=== PATIENT | female | born 2005 | race Hispanic/Latino ===

== ENCOUNTER 2024-07-24 16:05 | Emergency (ER) | payer BC, SELFPAY ==
[2024-07-24 17:09] LABS: SARS-CoV-2 Antigen CONTROL BLUE LINE VIS/BG OK; SARS-CoV-2 Antigen Rapid Res Negative (Negative)
--- NOTE | 2024-07-24 20:02 | RAD REPORT ---
EXAM: CT brain without contrast HISTORY: Headache COMPARISON: None TECHNIQUE: Multiple contiguous axial images were obtained and a CT of the brain without contrast.. Sagittal and coronal reconstruction performed. Automated exposure control, adjustment of the mA and/or kV according to patient size, and/or iterative reconstruction. Unless otherwise specified, incidental f indings do not require dedicated imaging follow-up FINDINGS: An intracranial bleed is not seen Ventricles are normal caliber No extra-axial fluid collection noted No significant hypodensity within the brain No fluid within the visualized sinuses or mastoids noted. IMPRESSION: No acute intracranial abnormality noted. If the patient continues to have symptoms to suggest an acute intracranial abnormality then MRI of th e brain would be recommended.
[2024-07-24] MEDS ORDERED: KETOROLAC 30 MG/ML INJ ONE (20:06)
--- NOTE | 2024-07-24 20:26 | EDPHYS ---
Physician Documentation [facility] Name: Renetta Beal Age: 19 yrs Sex: Female : 2005 Arrival Date: 07/24/2024 Time: 16:05 Bed 7 Private MD: ED Physician Evens Haider HPI: 07/24 21:32 This 19 yrs old Female presents to ER via Ambulatory with complaints of kb Headache. 21:32 Pt is a 19 year old female who presents for headache that started yesterday. States "my kb brain is hurting." Reports headache started while she was in an argument and she felt a pop in her head. Pain is to bilateral temples and forehead. Denies nausea, vomiting, photophobia. Historical: - Allergies: 16:40 Prednisone (HEADACHE); cm10 - PMHx: 16:40 None; cm10 - PSHx: 16:40 BREAST IMPLANTS; cm10 - Immunization history:: Adult Immunizations up to date. - Infectious Disease History:: Denies. - Social history:: Smoking status: Patient denies any tobacco usage or history of. ROS: 21:32 Constitutional: As per HPI kb Exam: 21:32 Constitutional: This is a well developed, well nourished patient who is awake, alert, kb and in no acute distress. Head/Face: Normocephalic, atraumatic. Eyes: Pupils equal round and reactive to light, extra-ocular motions intact. Lids and lashes normal. Conjunctiva and sclera are non-icteric and not injected. Cornea within normal limits. Periorbital areas with no swelling, redness, or edema. ENT: Moist Mucous membranes Cardiovascular: Regular rate Respiratory: Respirations even and unlabored. No increased work of breathing. Talking in full sentences Skin: Warm, dry with normal turgor. Normal color. MS/ Extremity: Pulses equal, no cyanosis. Neurovascular intact. Full, normal range of motion. Neuro: Awake and alert, GCS 15, oriented to person, place, time, and situation. Vital Signs: 16:38 BP 123 / 97; Pulse 74; Resp 16; Temp 97.8(TE); Pulse Ox 99% on R/A; Weight 60.33 kg; cm10 Height 5 ft. 0 in. ; Pain 8/10; 19:13 BP 106 / 64; Pulse 69; Resp 16; Temp 98.9(O); Pulse Ox 98% ; Pain 7/10; bm8 20:28 BP 110 / 67; Pulse 71; Resp 17; Temp 98.9; Pulse Ox 100% ; Pain 0/10; bm8 16:38 Body Mass Index 25.97 (60.33 kg, 152.4 cm) cm10 16:38 Pain Scale: Adult cm10 19:13 Pain Scale: Adult bm8 20:28 Pain Scale: Adult bm8 Margarita Coma Score: 19:13 Eye Response: spontaneous(4). Motor Response: obeys commands(6). Verbal Response: bm8 oriented(5). Total: 15. 20:28 Eye Response: spontaneous(4). Motor Response: obeys commands(6). Verbal Response: bm8 oriented(5). Total: 15. 21:32 Eye Response: spontaneous(4). Motor Response: obeys commands(6). Verbal Response: kb oriented(5). Total: 15. MDM: 18:00 Medical Screening Exam initiated kb 21:32 Differential diagnosis: migraine, tension headache, aneurysm. Data reviewed: vital kb signs, nurses notes. Historians other than the Patient: Family Member: mother. Counseling: I had a detailed discussion with the patient and/or guardian regarding the historical points, exam findings, and any diagnostic results supporting the discharge/admit diagnosis, radiology results, the need for outpatient follow up, a family practitioner, to return to the emergency department if symptoms worsen or persist or if there are any questions or concerns that arise at home. 07/24 16:39 Order name: SARS RAPID; Complete Time: 18:25 cm10 07/24 16:39 Order name: Flu; Complete Time: 18:25 cm10 07/24 19:21 Order name: CT Head Brain wo Cont; Complete Time: 20:03 kb Administered Medications: 20:20 Drug: Ketorolac IM 30 mg IM once Route: IM; Site: left deltoid; bm8 20:29 Follow up: Response: No adverse reaction bm8 Disposition Summary: 07/24/24 20:25 Discharge Ordered Notes: Location: Home kb Condition: Stable kb Diagnosis - Headache kb Followup: kb - With: Emergency Department - When: As needed - Reason: Worsening of condition Followup: kb - With: Private Physician - When: 2 - 3 days - Reason: Recheck today's complaints, Continuance of care, Re-evaluation by your physician Discharge Instructions: - Discharge Summary Sheet kb - Tension Headache, Adult, [id number] kb Forms: - Medication Reconciliation Form kb - Antibiotic Education kb - Prescription Opioid Use kb - Patient Portal Instructions kb - Leadership Thank You Letter kb Signatures: Dispatcher [employer] EDMS Phyllis Arshad, ISAC GUERRIER-Kathy Robertson RN RN cm10 Samir Thurman RN RN bm8 Corrections: (The following items were deleted from the chart) 19:21 19:21 Head Brain Wo [id number] ordered. EDKY EDMS
--- NOTE | 2024-07-24 20:26 | ER ---
Nurse's Notes [facility] Name: Renetta Beal Age: 19 yrs Sex: Female : 2005 Arrival Date: 07/24/2024 Time: 16:05 Bed 7 Private MD: Diagnosis: Headache Presentation: 07/24 16:38 Chief complaint: Patient states: "ME BRAIN HAS BEEN HURTING FOR THE LAST 2 DAYS." PT cm10 DENIES ANY OTHER SYMPTOMS. Coronavirus screen: Client denies travel out of the [place] in the last 14 days. Ebola Screen: Patient denies travel to an Ebola-affected area in the 21 days before illness onset. No symptoms or risks identified at this time. 16:38 Method Of Arrival: Ambulatory cm10 16:39 Initial Sepsis Screen: Does the patient meet any 2 criteria? No. Patient's initial cm10 sepsis screen is negative. Does the patient have a suspected source of infection? No. Patient's initial sepsis screen is negative. Risk Assessment: Do you want to hurt yourself or someone else? Patient reports no desire to harm self or others. Onset of symptoms was July 24, 2024. 16:39 Acuity: MAHAMED 3 cm10 Triage Assessment: 16:41 General: Appears in no apparent distress. uncomfortable, Behavior is calm, cooperative. cm10 Neuro: No deficits noted. Level of Consciousness is awake, alert, obeys commands, Oriented to person, place, time, situation, Appropriate for age Reports headache. Historical: - Allergies: 16:40 Prednisone (HEADACHE); cm10 - PMHx: 16:40 None; cm10 - PSHx: 16:40 BREAST IMPLANTS; cm10 - Immunization history:: Adult Immunizations up to date. - Infectious Disease History:: Denies. - Social history:: Smoking status: Patient denies any tobacco usage or history of. Screenin:48 [facility] ED Fall Risk Assessment (Adult) History of falling in the last 3 months, jl7 including since admission No falls in past 3 months (0 pts) Confusion or Disorientation No (0 pts) Intoxicated or Sedated No (0 pts) Impaired Gait No (0 pts) Mobility Assist Device Used No (0 pt) Altered Elimination No (0 pt) Score/Fall Risk Level 0 - 2 = Low Risk Oriented to surroundings, Maintained a safe environment. Abuse screen: Denies threats or abuse. Denies injuries from another. Nutritional screening: No deficits noted. Tuberculosis screening: No symptoms or risk factors identified. 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 jl7 19:13 General: Appears in no apparent distress. comfortable, Behavior is calm, cooperative, bm8 appropriate for age. Pain: Complains of pain in top of head and forehead Pain currently is 7 out of 10 on a pain scale. Quality of pain is described as aching. Neuro: No deficits noted. Level of Consciousness is awake, alert, obeys commands, Oriented to person, place, time, situation, Appropriate for age Reports headache frontal area. Cardiovascular: Denies chest pain, Capillary refill < 3 seconds in bilateral fingers Patient's skin is warm and dry. Respiratory: Airway is patent Trachea midline Respiratory effort is even, unlabored, Respiratory pattern is regular, symmetrical. GI: No signs and/or symptoms were reported involving the gastrointestinal system. : No signs and/or symptoms were reported regarding the genitourinary system. EENT: No signs and/or symptoms were reported regarding the EENT system. Derm: No signs and/or symptoms reported regarding the dermatologic system. Musculoskeletal: No signs and/or symptoms reported regarding the musculoskeletal system. 19:16 Reassessment: Spoke to provider about pt requesting CT and her pain level, Provider bm8 stated that she would order a CT and she was holding off on pain medication until results are back on CT. 20:28 Reassessment: Patient appears in no apparent distress at this time. Patient and/or bm8 family updated on plan of care and expected duration. Pain level reassessed. Patient is alert, oriented x 3, equal unlabored respirations, skin warm/dry/pink. Patient denies pain at this time. Patient states feeling better. Patient states symptoms have improved. Vital Signs: 16:38 BP 123 / 97; Pulse 74; Resp 16; Temp 97.8(TE); Pulse Ox 99% on R/A; Weight 60.33 kg; cm10 Height 5 ft. 0 in. ; Pain 8/10; 19:13 BP 106 / 64; Pulse 69; Resp 16; Temp 98.9(O); Pulse Ox 98% ; Pain 7/10; bm8 20:28 BP 110 / 67; Pulse 71; Resp 17; Temp 98.9; Pulse Ox 100% ; Pain 0/10; bm8 16:38 Body Mass Index 25.97 (60.33 kg, 152.4 cm) cm10 16:38 Pain Scale: Adult cm10 19:13 Pain Scale: Adult bm8 20:28 Pain Scale: Adult bm8 Margarita Coma Score: 19:13 Eye Response: spontaneous(4). Motor Response: obeys commands(6). Verbal Response: bm8 oriented(5). Total: 15. 20:28 Eye Response: spontaneous(4). Motor Response: obeys commands(6). Verbal Response: bm8 oriented(5). Total: 15. 21:32 Eye Response: spontaneous(4). Motor Response: obeys commands(6). Verbal Response: kb oriented(5). Total: 15. ED Course: 16:08 Patient arrived in ED. im 16:40 Triage completed. cm10 16:41 Arm band placed on right wrist. Patient placed in waiting room. cm10 16:43 COVID swab sent to lab. Flu and/or RSV swab sent to lab. cm10 16:43 Flu Sent. cm10 16:43 SARS RAPID Sent. cm10 17:56 Patient placed in an exam room, on a stretcher. ll1 17:57 Rolf Leslie, RN is Primary Nurse. bp 18:00 Phyllis Arshad FNP-C is PHCP. kb 18:00 Evens Haider MD is Attending Physician. kb 18:48 Patient has correct armband on for positive identification. Provided Education on: use jl7 of call olivarez. 19:13 Client placed on continuous cardiac and pulse oximetry monitoring. NIBP monitoring bm8 applied. Pulse ox on. NIBP on. Door closed. Noise minimized. Pillow given. Verbal reassurance given. Head of bed elevated. 19:13 No provider procedures requiring assistance completed. Patient maintains SpO2 bm8 saturation greater than 95% on room air. 19:42 CT Head Brain wo Cont In Process Unspecified. EDMS 20:21 Primary Nurse role handed off by Rolf Leslie, RN bm8 20:21 Samir Thurman, RN is Primary Nurse. bm8 20:28 IV discontinued. bm8 Administered Medications: 20:20 Drug: Ketorolac IM 30 mg IM once Route: IM; Site: left deltoid; bm8 20:29 Follow up: Response: No adverse reaction bm8 Medication: 18:48 VIS not applicable for this client. jl7 Outcome: 20:25 Discharge ordered by . myrtle 20:28 Discharged to home ambulatory, bm8 20:28 Condition: stable 20:28 Discharge instructions given to patient, family, Instructed on discharge instructions, follow up and referral plans. no drinking with medication, no driving heavy equipment, medication usage, safety practices, Demonstrated understanding of instructions, follow-up care, medications, 20:30 Patient left the ED. bm8 Signatures: Dispatcher [employer] EDMS Phyllis Arshad, RESTAURANT LEAD-C RESTAURANT LEAD-Harlan Mitchell, RN RN jl7 Rolf Leslie, RN RN Mi Daniels RN RN ll1 Tosin Newberry Clarissa RN RN cm10 Samir Thurman, RN RN bm8 Corrections: (The following items were deleted from the chart) 16:39 16:38 Chief complaint: ll1 cm10 16:41 16:38 Chief complaint: Patient states: "ME BRAIN HAS BEEN HURTING FOR THE LAST 2 DAYS." 10 cm10 19:18 19:13 BP 106 / 64; Pulse 69bpm; Resp 16bpm; Pulse Ox 98%; Temp 97.8F; Pain 7/10, Adult; bm8 bm8
[2024-07-24 21:15] VITALS: TEMP 98.9
[2024-07-24 21:17] VITALS: BP 110/67; O2SAT 100
== END 2024-07-24 20:30 | disposition home or self-care (01) ==
LOC: ER 16:05
DX: R51.9 Headache, unspecified (principal); Z11.52 Encounter for screening for COVID-19; Z98.82 Breast implant status
CPT/HCPCS: 36415; 70450; 87804; 87811; 96372; 99284